=== PATIENT | male | born 1950 | race Caucasian/White ===

== ENCOUNTER 2017-11-10 09:48 | Day surgery (SDC) | payer MEDICARE, OTHER ==
[~2017-11-10 09:48] MED LIST: GLYCOPYRROLATE 0.4 MG INJ
[2017-11-10] MEDS ORDERED: CEFAZOLIN 2 GM/50 ML (PMX) 50 ML IVPB (11:00)
[2017-11-10] MEDS ORDERED: SOD CHLORIDE 0.9% 1,000 ML IV (11:00)
[2017-11-10 11:20] LABS: ABNORMAL IP MESSAGE 1; HEMATOCRIT 28.2 % (42.0-52.0); HEMOGLOBIN 9.6 g/dl (14.0-18.0); MEAN CORPUSCULAR HEMOGLOBIN 29.4 pg (29.0-33.0); MEAN CORPUSCULAR VOLUME 86.2 fl (82.0-101.0); MEAN PLATELET VOLUME 11.1 fl (7.4-10.4); PLATELET COUNT 83 10^3/UL (140-415); POSITIVE DIFF @See below; RED BLOOD COUNT 3.27 10^6/ul (4.70-6.10)
[2017-11-10 11:20] LABS: WHITE BLOOD COUNT 4.8 10^3/ul (4.8-10.8)
[2017-11-10 11:31] LABS: ADD MAN DIFF? YES; HOLD TRANSMISSIONS 1
[2017-11-10 11:48] LABS: ALANINE AMINOTRANSFERASE 22 IU/L (13-69); ALBUMIN 4.3 g/dl (3.3-4.9); ALBUMIN/GLOBULIN RATIO 1.34; ALKALINE PHOSPHATASE 127 IU/L (42-121); ANION GAP 24 (8-16); ASPARTATE AMINO TRANSFERASE < 8 IU/L (15-46); BILIRUBIN,INDIRECT 0.2 mg/dl (0-1.1); BILIRUBIN,TOTAL 0.2 mg/dl (0.2-1.3); CARBON DIOXIDE 25 mmol/L (21-31); CHLORIDE 99 mmol/L (97-110); GLUCOSE 154 mg/dl (70-220); TOTAL PROTEIN 7.5 g/dl (6.1-8.1)
[2017-11-10 11:57] LABS: INR 1.08; PROTIME 14.1 Sec (11.9-14.9); PT RATIO 1.1
[2017-11-10 11:58] LABS: PARTIAL THROMBOPLASTIN TIME 31.8 Sec (25.0-35.0)
[2017-11-10 12:01] LABS: BLOOD UREA NITROGEN 75 mg/dl (7-20); CALCIUM 9.7 mg/dl (8.4-10.2); CREATININE 6.38 mg/dl (0.61-1.24); POTASSIUM 4.8 mmol/L (3.5-5.1); SODIUM 143 mmol/L (135-144)
[2017-11-10] MEDS ORDERED: PROPOFOL 40 ML (13:55)
[2017-11-10] MEDS ORDERED: LIDOCAINE 2% (SDV) 5 ML INJ (13:59)
[2017-11-10] MEDS ORDERED: FENTAnyl 50 MCG/ML VIAL (13:59)
[2017-11-10] MEDS ORDERED: MIDAZOLAM 1 MG/ML 2 ML INJ (14:00)
[2017-11-10] MEDS: LIDOCAINE 1%/EPI 30 ML INJ (14:25)
[2017-11-10] MEDS: hydrALAzine 20 MG INJ IV ×2 (15:07→15:27)
== END 2017-11-10 16:30 | disposition home or self-care (01) ==
LOC: SDS 09:48
DX: D18.01 Hemangioma of skin and subcutaneous tissue (principal); I10 Essential (primary) hypertension; E11.9 Type 2 diabetes mellitus without complications; Z79.4 Long term (current) use of insulin; E78.5 Hyperlipidemia, unspecified
CPT/HCPCS: 25075; 71045; 80053; 82962; 85025; 85610; 85730; 88307; 88342; 93005

== ENCOUNTER 2017-11-24 12:22 | Emergency (ER) | payer MEDICARE, OTHER | END 2017-11-24 12:34 | disposition home or self-care (01) | LOC: E/R 12:34 | DX: Z48.02 Encounter for removal of sutures (principal); Z79.4 Long term (current) use of insulin; Z79.82 Long term (current) use of aspirin | CPT/HCPCS: 99281 ==

== ENCOUNTER 2018-10-01 22:10 | Inpatient (IN) | payer MEDICARE, OTHER ==
[2018-10-01 22:56] LABS: ADD MAN DIFF? NO
[2018-10-01 23:00] LABS: ABNORMAL IP MESSAGE 1; BASOPHILS % 0.2 % (0.0-2.0); EOSINOPHILS # 0.1 10^3/ul (0.0-0.5); EOSINOPHILS % 0.6 % (0.0-7.0); HEMATOCRIT 36.7 % (42.0-52.0); HEMOGLOBIN 11.4 g/dl (14.0-18.0); LYMPHOCYTES # 0.4 10^3/ul (0.8-2.9); LYMPHOCYTES % 3.5 % (15.0-51.0); MEAN CORPUSCULAR HEMOGLOBIN 27.4 pg (29.0-33.0); MEAN CORPUSCULAR HGB CONC 31.1 g/dl (32.0-37.0); MEAN CORPUSCULAR VOLUME 88.2 fl (82.0-101.0); MEAN PLATELET VOLUME 9.3 fl (7.4-10.4); MONOCYTE # 0.6 10^3/ul (0.3-0.9); MONOCYTES % 5.7 % (0.0-11.0); NEUTROPHIL # 10.1 10^3/ul (1.6-7.5); NEUTROPHILS % 89.6 % (39.0-77.0); PLATELET COUNT 268 10^3/UL (140-415); POSITIVE DIFF @See below; RED BLOOD COUNT 4.16 10^6/ul (4.70-6.10); RED CELL DISTRIBUTION WIDTH 13.4 % (11.5-14.5)
[2018-10-01 23:00] LABS: WHITE BLOOD COUNT 11.3 10^3/ul (4.8-10.8)
[2018-10-01 23:15] LABS: ALANINE AMINOTRANSFERASE 23 IU/L (13-69); ALBUMIN 4.2 g/dl (3.3-4.9); ALBUMIN/GLOBULIN RATIO 1.05; ALKALINE PHOSPHATASE 250 IU/L (42-121); ANION GAP 20 (5-13); ASPARTATE AMINO TRANSFERASE 13 IU/L (15-46); BILIRUBIN,INDIRECT 0.3 mg/dl (0-1.1); BILIRUBIN,TOTAL 0.3 mg/dl (0.2-1.3); BLOOD UREA NITROGEN 88 mg/dl (7-20); CALCIUM 10.1 mg/dl (8.4-10.2); CARBON DIOXIDE 24 mmol/L (21-31); CHLORIDE 94 mmol/L (97-110); CREATININE 9.81 mg/dl (0.61-1.24); Estimated GFR 5 mL/min (>60); GLUCOSE 147 mg/dl (70-220); POTASSIUM 5.2 mmol/L (3.5-5.1); SODIUM 138 mmol/L (135-144); TOTAL PROTEIN 8.2 g/dl (6.1-8.1)
[2018-10-01 23:19] LABS: INR 1.15; PROTIME 14.8 Sec (11.9-14.9); PT RATIO 1.2
[2018-10-01 23:20] LABS: PARTIAL THROMBOPLASTIN TIME 32.6 Sec (23.0-35.0)
[2018-10-01 23:27] LABS: TROPONIN-I 0.097 ng/ml (0.000-0.120)
[2018-10-02] MEDS: CEFEPIME 1GM/50 ML (PMX) 50 ML IVPB ×2 (00:30→09:08)
[2018-10-02] MEDS: VANCOMYCIN 1 GM (PMX) 250 ML IVPB (01:02)
[2018-10-02 03:31] LABS: LACTIC ACID 0.7 mmol/L (0.5-2.0)
[2018-10-02] MEDS ORDERED: VANCOMYCIN IV PER PHARMACY XX (04:00)
[2018-10-02] MEDS ORDERED: hydrOXYzine HCL 50 MG TAB PO (04:00)
[2018-10-02] MEDS: ONDANSETRON 4 MG INJ IV (04:44)
[2018-10-02] MEDS: ACETAMINOPHEN 325 MG TAB PO (04:44)
[2018-10-02] MEDS ORDERED: GLUCOSE GEL 15 GRAM TUBE BUCCAL (05:00)
[2018-10-02] MEDS ORDERED: GLUCOSE GEL 15 GRAM TUBE PO ×2 (05:00)
[2018-10-02] MEDS ORDERED: DEXTROSE 50% 50 ML SYRINGE IV (05:00)
[2018-10-02] MEDS ORDERED: GLUCAGON 1 MG INJ IM (05:00)
[2018-10-02 05:42] LABS: ADD MAN DIFF? NO
[2018-10-02 05:44] LABS: ABNORMAL IP MESSAGE 1; BASOPHILS % 0.2 % (0.0-2.0); EOSINOPHILS % 0.3 % (0.0-7.0); HEMATOCRIT 30.9 % (42.0-52.0); HEMOGLOBIN 9.9 g/dl (14.0-18.0); LYMPHOCYTES # 0.4 10^3/ul (0.8-2.9); LYMPHOCYTES % 3.3 % (15.0-51.0); MEAN CORPUSCULAR VOLUME 87.5 fl (82.0-101.0); MEAN PLATELET VOLUME 9.3 fl (7.4-10.4); MONOCYTE # 0.7 10^3/ul (0.3-0.9); MONOCYTES % 6.2 % (0.0-11.0); NEUTROPHILS % 89.5 % (39.0-77.0); PLATELET COUNT 200 10^3/UL (140-415); POSITIVE DIFF @See below; RED BLOOD COUNT 3.53 10^6/ul (4.70-6.10); RED CELL DISTRIBUTION WIDTH 13.6 % (11.5-14.5)
[2018-10-02 05:44] LABS: WHITE BLOOD COUNT 11.2 10^3/ul (4.8-10.8)
[2018-10-02 06:00] LABS: HEMOGLOBIN A1C 5.2 % (0-5.9)
[2018-10-02] MEDS: VANCOMYCIN 1 GM 250 ML IVPB (06:03)
[2018-10-02 06:16] LABS: CHOLESTEROL 97 mg/dl (100-200)
[2018-10-02 06:16] LABS: CHOL/HDL RATIO 3.4 RATIO; HDL CHOLESTEROL 28 mg/dl (30-78); LDL CHOLESTEROL,CALCULATED 51 mg/dl; TRIGLYCERIDES 92 mg/dl (0-149)
[2018-10-02 06:50] LABS: ANION GAP 16 (5-13); BLOOD UREA NITROGEN 91 mg/dl (7-20); CALCIUM 9.6 mg/dl (8.4-10.2); CARBON DIOXIDE 25 mmol/L (21-31); CHLORIDE 97 mmol/L (97-110); CREATININE 9.81 mg/dl (0.61-1.24); Estimated GFR 5 mL/min (>60); GLUCOSE 95 mg/dl (70-220); POTASSIUM 5.2 mmol/L (3.5-5.1); SODIUM 138 mmol/L (135-144)
[2018-10-02] MEDS ORDERED: hydrOXYzine HCL 25 MG TAB PO (07:00)
[2018-10-02] MEDS: ACCU-CHEK XX ×4 (07:00→21:24)
[2018-10-02] MEDS: INSULIN ASPART [NOVOLOG] 3 ML PEN SC ×4 (07:57→20:09)
[2018-10-02] MEDS ORDERED: AMLODIPINE 2.5 MG TAB PO (09:00)
[2018-10-02] MEDS: ASPIRIN 81 MG TAB PO (09:07)
[2018-10-02] MEDS: AMLODIPINE 10 MG TAB PO (09:08)
[2018-10-02] MEDS: PIOGLITAZONE 15 MG TAB PO (09:08)
[2018-10-02] MEDS: FUROSEMIDE 20 MG TAB PO (09:08)
[2018-10-02] MEDS: LISINOPRIL 5 MG TAB PO (09:09)
[2018-10-02 15:51] LABS: HEPATITIS B SURFACE ANTIGEN NEGATIVE (NEGATIVE)
[2018-10-02 16:08] LABS: HEPATITIS B SURFACE ANTIBODY POSITIVE (NEGATIVE)
[2018-10-02] MEDS: IOHEXOL 14.3 MG(I)/ML (ADULT) BTL PO (17:30)
[2018-10-02] MEDS: METOCLOPRAMIDE 10 MG INJ IV ×2 (17:30→20:09)
[2018-10-02] MEDS: INSULIN GLARGINE [LANTus] (100 UNITS/ML) SYG SC (21:24)
[2018-10-03 06:05] LABS: ADD MAN DIFF? NO
[2018-10-03] MEDS: PANTOPRAZOLE (EC) 40 MG TAB PO (06:14)
[2018-10-03] MEDS: METOCLOPRAMIDE 10 MG INJ IV ×4 (06:15→20:06)
[2018-10-03 06:25] LABS: ABNORMAL IP MESSAGE 1; BASOPHILS % 0.3 % (0.0-2.0); EOSINOPHILS # 0.2 10^3/ul (0.0-0.5); HEMATOCRIT 32.7 % (42.0-52.0); HEMOGLOBIN 10.4 g/dl (14.0-18.0); LYMPHOCYTES # 0.5 10^3/ul (0.8-2.9); LYMPHOCYTES % 6.2 % (15.0-51.0); MEAN CORPUSCULAR HEMOGLOBIN 27.8 pg (29.0-33.0); MEAN CORPUSCULAR HGB CONC 31.8 g/dl (32.0-37.0); MEAN CORPUSCULAR VOLUME 87.4 fl (82.0-101.0); MEAN PLATELET VOLUME 9.8 fl (7.4-10.4); MONOCYTE # 0.6 10^3/ul (0.3-0.9); NEUTROPHILS % 82.2 % (39.0-77.0); PLATELET COUNT 207 10^3/UL (140-415); POSITIVE DIFF @See below; RED BLOOD COUNT 3.74 10^6/ul (4.70-6.10); RED CELL DISTRIBUTION WIDTH 13.8 % (11.5-14.5)
[2018-10-03 06:25] LABS: WHITE BLOOD COUNT 7.3 10^3/ul (4.8-10.8)
[2018-10-03 06:34] LABS: ANION GAP 14 (5-13); BLOOD UREA NITROGEN 59 mg/dl (7-20); CALCIUM 9.6 mg/dl (8.4-10.2); CARBON DIOXIDE 27 mmol/L (21-31); CHLORIDE 98 mmol/L (97-110); CHOLESTEROL 102 mg/dl (100-200); CREATININE 6.99 mg/dl (0.61-1.24); Estimated GFR 8 mL/min (>60); GLUCOSE 90 mg/dl (70-220); HDL CHOLESTEROL 25 mg/dl (30-78); LDL CHOLESTEROL,CALCULATED 58 mg/dl; POTASSIUM 4.8 mmol/L (3.5-5.1); SODIUM 139 mmol/L (135-144); TRIGLYCERIDES 93 mg/dl (0-149)
[2018-10-03] MEDS: ACCU-CHEK XX ×4 (07:00→20:06)
[2018-10-03 07:18] LABS: HEMOGLOBIN A1C 5.1 % (0-5.9)
[2018-10-03] MEDS: INSULIN ASPART [NOVOLOG] 3 ML PEN SC ×4 (08:00→20:11)
[2018-10-03] MEDS: CEFEPIME 1GM/50 ML (PMX) 50 ML IVPB ×2 (08:49→09:38)
[2018-10-03] MEDS: FUROSEMIDE 20 MG TAB PO ×2 (08:49→09:39)
[2018-10-03] MEDS: ASPIRIN 81 MG TAB PO ×2 (08:49→09:39)
[2018-10-03] MEDS: PIOGLITAZONE 15 MG TAB PO ×2 (08:49→09:38)
[2018-10-03] MEDS: AMLODIPINE 10 MG TAB PO ×2 (08:54→09:40)
[2018-10-03] MEDS: LISINOPRIL 5 MG TAB PO ×2 (08:54→09:40)
[2018-10-03] MEDS: PROPOFOL 20 ML (08:59)
[2018-10-03 16:43] LABS: CARCINOEMBRYONIC ANTIGEN 5.4 ng/ml (0.0-5.0)
[2018-10-03 17:09] LABS: INR 1.25; PROTIME 15.8 Sec (11.9-14.9); PT RATIO 1.2
[2018-10-03 17:10] LABS: PARTIAL THROMBOPLASTIN TIME 33.7 Sec (23.0-35.0)
[2018-10-03] MEDS: LIDOCAINE 1% (MDV) 20 ML INJ (17:10)
[2018-10-03 17:58] LABS: FLUID TYPE ASCITES FLUID
[2018-10-03 17:59] LABS: FLUID GLUCOSE 118 mg/dl; FLUID TOTAL PROTEIN 3.9 g/dl
[2018-10-03 18:04] LABS: FLD PMN% 72.8 %; FLD RBC 4000 /uL; FLD WBC 3413 /cmm
[2018-10-03 19:24] LABS: CANCER ANTIGEN 19-9 27.1 U/ml (0.0-37.0)
[2018-10-03 19:25] LABS: ALPHA FETOPROTEIN < 0.83 IU/L (0.00-7.21)
[2018-10-03 19:43] LABS: FLD TYPE ASCITES
[2018-10-03 19:43] LABS: FLD CLARITY SLIGHTLY CLOUDY; FLD COLOR YELLOW
[2018-10-03 19:47] LABS: FLD MN% 27.2 %
[2018-10-03] MEDS: INSULIN GLARGINE [LANTus] (100 UNITS/ML) SYG SC (20:11)
[2018-10-04 05:39] LABS: VANCOMYCIN,RANDOM 12.5 ug/ml
[2018-10-04] MEDS: METOCLOPRAMIDE 10 MG INJ IV ×4 (06:15→20:58)
[2018-10-04] MEDS: PANTOPRAZOLE (EC) 40 MG TAB PO (06:15)
[2018-10-04] MEDS: ACCU-CHEK XX ×4 (06:15→20:58)
[2018-10-04] MEDS: INSULIN ASPART [NOVOLOG] 3 ML PEN SC ×4 (07:46→20:58)
[2018-10-04] MEDS: PIOGLITAZONE 15 MG TAB PO (08:12)
[2018-10-04] MEDS: CEFEPIME 1GM/50 ML (PMX) 50 ML IVPB (08:12)
[2018-10-04] MEDS: FUROSEMIDE 20 MG TAB PO (08:13)
[2018-10-04] MEDS: ASPIRIN 81 MG TAB PO (08:13)
[2018-10-04] MEDS: AMLODIPINE 10 MG TAB PO (08:13)
[2018-10-04] MEDS: VANCOMYCIN 1 GM 250 ML IVPB (14:51)
[2018-10-04] MEDS ORDERED: PIPER-TAZO 3.375 GM IV (PMX) 100 ML IVPB (18:00)
[2018-10-04] MEDS: PIPER-TAZO 2.25 GM/NS 50 ML IVPB (18:50)
[2018-10-04] MEDS: INSULIN GLARGINE [LANTus] (100 UNITS/ML) SYG SC (21:24)
[2018-10-05] MEDS: PIPER-TAZO 2.25 GM/NS 50 ML IVPB ×3 (04:52→21:26)
[2018-10-05] MEDS: PANTOPRAZOLE (EC) 40 MG TAB PO (04:52)
[2018-10-05] MEDS: METOCLOPRAMIDE 10 MG INJ IV ×4 (04:53→20:26)
[2018-10-05] MEDS: ACCU-CHEK XX ×4 (07:30→21:00)
[2018-10-05] MEDS: INSULIN ASPART [NOVOLOG] 3 ML PEN SC ×4 (08:00→21:31)
[2018-10-05] MEDS: PIOGLITAZONE 15 MG TAB PO (08:45)
[2018-10-05] MEDS: FUROSEMIDE 20 MG TAB PO (08:46)
[2018-10-05] MEDS: ASPIRIN 81 MG TAB PO (08:46)
[2018-10-05] MEDS: LISINOPRIL 5 MG TAB PO (08:47)
[2018-10-05] MEDS: AMLODIPINE 10 MG TAB PO (08:47)
[2018-10-05] MEDS: INSULIN GLARGINE [LANTus] (100 UNITS/ML) SYG SC (21:35)
[2018-10-06 05:55] LABS: ADD MAN DIFF? NO
[2018-10-06 06:02] LABS: BASOPHILS % 0.3 % (0.0-2.0); EOSINOPHILS # 0.2 10^3/ul (0.0-0.5); EOSINOPHILS % 3.6 % (0.0-7.0); HEMATOCRIT 31.2 % (42.0-52.0); HEMOGLOBIN 9.9 g/dl (14.0-18.0); LYMPHOCYTES # 0.6 10^3/ul (0.8-2.9); LYMPHOCYTES % 10.3 % (15.0-51.0); MEAN CORPUSCULAR HEMOGLOBIN 27.4 pg (29.0-33.0); MEAN CORPUSCULAR HGB CONC 31.7 g/dl (32.0-37.0); MEAN CORPUSCULAR VOLUME 86.4 fl (82.0-101.0); MONOCYTE # 0.5 10^3/ul (0.3-0.9); MONOCYTES % 9.1 % (0.0-11.0); NEUTROPHIL # 4.4 10^3/ul (1.6-7.5); PLATELET COUNT 189 10^3/UL (140-415); RED BLOOD COUNT 3.61 10^6/ul (4.70-6.10); RED CELL DISTRIBUTION WIDTH 13.8 % (11.5-14.5)
[2018-10-06 06:02] LABS: WHITE BLOOD COUNT 5.8 10^3/ul (4.8-10.8)
[2018-10-06] MEDS: METOCLOPRAMIDE 10 MG INJ IV ×4 (06:08→19:36)
[2018-10-06] MEDS: PANTOPRAZOLE (EC) 40 MG TAB PO (06:09)
[2018-10-06] MEDS: PIPER-TAZO 2.25 GM/NS 50 ML IVPB ×3 (06:10→19:36)
[2018-10-06 06:30] LABS: ANION GAP 15 (5-13); BLOOD UREA NITROGEN 53 mg/dl (7-20); CARBON DIOXIDE 25 mmol/L (21-31); CHLORIDE 94 mmol/L (97-110); CREATININE 6.53 mg/dl (0.61-1.24); Estimated GFR 9 mL/min (>60); GLUCOSE 122 mg/dl (70-220); POTASSIUM 5.9 mmol/L (3.5-5.1); SODIUM 134 mmol/L (135-144)
[2018-10-06] MEDS: ACCU-CHEK XX ×4 (07:00→19:35)
[2018-10-06] MEDS: INSULIN ASPART [NOVOLOG] 3 ML PEN SC ×4 (08:00→20:37)
[2018-10-06] MEDS: PIOGLITAZONE 15 MG TAB PO (09:16)
[2018-10-06] MEDS: ASPIRIN 81 MG TAB PO (09:16)
[2018-10-06] MEDS: FUROSEMIDE 20 MG TAB PO (09:17)
[2018-10-06] MEDS: LISINOPRIL 5 MG TAB PO (09:17)
[2018-10-06] MEDS: AMLODIPINE 10 MG TAB PO (09:17)
[2018-10-06] MEDS: INSULIN GLARGINE [LANTus] (100 UNITS/ML) SYG SC (20:37)
[2018-10-07] MEDS: PIPER-TAZO 2.25 GM/NS 50 ML IVPB ×3 (06:39→20:18)
[2018-10-07] MEDS: PANTOPRAZOLE (EC) 40 MG TAB PO (06:49)
[2018-10-07] MEDS: METOCLOPRAMIDE 10 MG INJ IV ×4 (06:49→20:17)
[2018-10-07 06:53] LABS: VANCOMYCIN,RANDOM 12.2 ug/ml
[2018-10-07] MEDS: ACCU-CHEK XX ×4 (07:56→20:17)
[2018-10-07] MEDS: INSULIN ASPART [NOVOLOG] 3 ML PEN SC ×4 (08:00→20:17)
[2018-10-07] MEDS: AMLODIPINE 10 MG TAB PO (08:21)
[2018-10-07] MEDS: PIOGLITAZONE 15 MG TAB PO (08:21)
[2018-10-07] MEDS: FUROSEMIDE 20 MG TAB PO (08:22)
[2018-10-07] MEDS: LISINOPRIL 5 MG TAB PO (08:22)
[2018-10-07] MEDS: ASPIRIN 81 MG TAB PO (08:22)
[2018-10-07] MEDS: VANCOMYCIN 1 GM 250 ML IVPB (10:06)
[2018-10-07] MEDS: INSULIN GLARGINE [LANTus] (100 UNITS/ML) SYG SC (20:48)
[2018-10-08 06:21] LABS: ADD MAN DIFF? NO
[2018-10-08] MEDS: PANTOPRAZOLE (EC) 40 MG TAB PO (06:24)
[2018-10-08] MEDS: METOCLOPRAMIDE 10 MG INJ IV ×4 (06:27→20:48)
[2018-10-08] MEDS: PIPER-TAZO 2.25 GM/NS 50 ML IVPB ×3 (06:27→20:48)
[2018-10-08 06:49] LABS: BASOPHILS % 0.6 % (0.0-2.0); EOSINOPHILS # 0.2 10^3/ul (0.0-0.5); EOSINOPHILS % 3.6 % (0.0-7.0); HEMATOCRIT 31.8 % (42.0-52.0); HEMOGLOBIN 9.9 g/dl (14.0-18.0); LYMPHOCYTES # 0.7 10^3/ul (0.8-2.9); LYMPHOCYTES % 10.1 % (15.0-51.0); MEAN CORPUSCULAR HEMOGLOBIN 26.8 pg (29.0-33.0); MEAN CORPUSCULAR HGB CONC 31.1 g/dl (32.0-37.0); MEAN CORPUSCULAR VOLUME 85.9 fl (82.0-101.0); MEAN PLATELET VOLUME 9.8 fl (7.4-10.4); MONOCYTE # 0.6 10^3/ul (0.3-0.9); MONOCYTES % 8.5 % (0.0-11.0); NEUTROPHILS % 76.3 % (39.0-77.0); PLATELET COUNT 203 10^3/UL (140-415)
[2018-10-08 06:49] LABS: WHITE BLOOD COUNT 6.6 10^3/ul (4.8-10.8)
[2018-10-08] MEDS: ACCU-CHEK XX ×4 (07:00→20:47)
[2018-10-08] MEDS: INSULIN ASPART [NOVOLOG] 3 ML PEN SC ×4 (07:39→20:50)
[2018-10-08] MEDS: ASPIRIN 81 MG TAB PO (08:16)
[2018-10-08] MEDS: PIOGLITAZONE 15 MG TAB PO (08:16)
[2018-10-08] MEDS: AMLODIPINE 10 MG TAB PO (08:16)
[2018-10-08] MEDS: LISINOPRIL 5 MG TAB PO (08:16)
[2018-10-08] MEDS: FUROSEMIDE 20 MG TAB PO (08:17)
[2018-10-08] MEDS: INSULIN GLARGINE [LANTus] (100 UNITS/ML) SYG SC (20:51)
[2018-10-09 05:07] LABS: ADD MAN DIFF? NO
[2018-10-09 05:23] LABS: BASOPHILS % 0.1 % (0.0-2.0); EOSINOPHILS # 0.2 10^3/ul (0.0-0.5); HEMATOCRIT 31.8 % (42.0-52.0); HEMOGLOBIN 9.8 g/dl (14.0-18.0); LYMPHOCYTES # 0.6 10^3/ul (0.8-2.9); LYMPHOCYTES % 8.8 % (15.0-51.0); MEAN CORPUSCULAR HEMOGLOBIN 26.9 pg (29.0-33.0); MEAN CORPUSCULAR HGB CONC 30.8 g/dl (32.0-37.0); MEAN CORPUSCULAR VOLUME 87.4 fl (82.0-101.0); MEAN PLATELET VOLUME 9.7 fl (7.4-10.4); MONOCYTE # 0.6 10^3/ul (0.3-0.9); MONOCYTES % 8.8 % (0.0-11.0); NEUTROPHIL # 5.4 10^3/ul (1.6-7.5); NEUTROPHILS % 78.3 % (39.0-77.0); PLATELET COUNT 206 10^3/UL (140-415); RED BLOOD COUNT 3.64 10^6/ul (4.70-6.10); RED CELL DISTRIBUTION WIDTH 14.1 % (11.5-14.5)
[2018-10-09 05:23] LABS: WHITE BLOOD COUNT 6.9 10^3/ul (4.8-10.8)
[2018-10-09] MEDS: PANTOPRAZOLE (EC) 40 MG TAB PO (06:08)
[2018-10-09] MEDS: METOCLOPRAMIDE 10 MG INJ IV ×3 (06:09→17:27)
[2018-10-09] MEDS: PIPER-TAZO 2.25 GM/NS 50 ML IVPB (06:09)
[2018-10-09 06:18] LABS: ANION GAP 15 (5-13); BLOOD UREA NITROGEN 49 mg/dl (7-20); CARBON DIOXIDE 22 mmol/L (21-31); CHLORIDE 96 mmol/L (97-110); CREATININE 6.79 mg/dl (0.61-1.24); Estimated GFR 8 mL/min (>60); GLUCOSE 85 mg/dl (70-220); SODIUM 133 mmol/L (135-144)
[2018-10-09 06:24] LABS: POTASSIUM 6.6 mmol/L (3.5-5.1)
[2018-10-09] MEDS: ACCU-CHEK XX ×4 (07:00→21:00)
[2018-10-09] MEDS ORDERED: SODIUM POLYSTYRENE 15 GM KIT (POWDER + SORBITOL) PO (07:00)
[2018-10-09] MEDS: INSULIN ASPART [NOVOLOG] 3 ML PEN SC ×4 (07:57→19:57)
[2018-10-09] MEDS ORDERED: NA POLYST SULFON 15 GM/60 ML BTL PO (08:00)
[2018-10-09] MEDS: NA POLYST SULFON 15 GM/60 ML BTL PO (08:00)
[2018-10-09] MEDS: PIOGLITAZONE 15 MG TAB PO (08:06)
[2018-10-09] MEDS: FUROSEMIDE 20 MG TAB PO (08:47)
[2018-10-09] MEDS: AMLODIPINE 10 MG TAB PO (08:47)
[2018-10-09] MEDS: ASPIRIN 81 MG TAB PO (08:47)
[2018-10-09] MEDS: LISINOPRIL 5 MG TAB PO (08:47)
[2018-10-09] MEDS: AMOXICILLIN/CLAV 250 MG TAB PO (15:03)
[2018-10-09] MEDS: INSULIN GLARGINE [LANTus] (100 UNITS/ML) SYG SC (19:57)
[2018-10-10] MEDS: METOCLOPRAMIDE 10 MG INJ IV ×5 (00:42→21:20)
[2018-10-10] MEDS: AMOXICILLIN/CLAV 250 MG TAB PO ×4 (00:42→21:16)
[2018-10-10 05:40] LABS: PLATELET COUNT 185 10^3/UL (140-415)
[2018-10-10] MEDS: PANTOPRAZOLE (EC) 40 MG TAB PO (05:52)
[2018-10-10] MEDS: LEVOFLOXACIN 250 MG TAB PO (05:52)
[2018-10-10 05:59] LABS: INR 1.23; PROTIME 15.6 Sec (11.9-14.9); PT RATIO 1.2
[2018-10-10 06:00] LABS: PARTIAL THROMBOPLASTIN TIME 36.5 Sec (23.0-35.0); THROMBIN TIME 15.6 SEC (13.8-19.1)
[2018-10-10 06:32] LABS: ANION GAP 9 (5-13); BLOOD UREA NITROGEN 28 mg/dl (7-20); CALCIUM 8.6 mg/dl (8.4-10.2); CARBON DIOXIDE 30 mmol/L (21-31); CHLORIDE 97 mmol/L (97-110); Estimated GFR 12 mL/min (>60); GLUCOSE 83 mg/dl (70-220); POTASSIUM 4.5 mmol/L (3.5-5.1); SODIUM 136 mmol/L (135-144)
[2018-10-10] MEDS: ACCU-CHEK XX ×4 (07:00→21:16)
[2018-10-10] MEDS: INSULIN ASPART [NOVOLOG] 3 ML PEN SC ×4 (08:00→21:00)
[2018-10-10] MEDS: DEXTROSE 50% 50 ML SYRINGE IV (08:21)
[2018-10-10] MEDS: LIDOCAINE 1% (MDV) 20 ML INJ (09:12)
[2018-10-10] MEDS: FENTAnyl 50 MCG/ML VIAL ×2 (09:49)
[2018-10-10] MEDS: MIDAZOLAM 1 MG/ML 2 ML INJ (09:49)
[2018-10-10] MEDS: NALOXONE (0.4 MG/ML) INJ (09:50)
[2018-10-10] MEDS: AMLODIPINE 10 MG TAB PO (12:11)
[2018-10-10] MEDS: ASPIRIN 81 MG TAB PO (12:11)
[2018-10-10] MEDS: LISINOPRIL 5 MG TAB PO (12:11)
[2018-10-10] MEDS: FUROSEMIDE 20 MG TAB PO (12:12)
[2018-10-10] MEDS: PIOGLITAZONE 15 MG TAB PO (12:17)
[2018-10-10] MEDS: INSULIN GLARGINE [LANTus] (100 UNITS/ML) SYG SC (21:26)
[2018-10-11] MEDS: LEVOFLOXACIN 250 MG TAB PO (06:06)
[2018-10-11] MEDS: PANTOPRAZOLE (EC) 40 MG TAB PO (06:06)
[2018-10-11] MEDS: METOCLOPRAMIDE 10 MG INJ IV ×4 (06:07→21:10)
[2018-10-11] MEDS: AMOXICILLIN/CLAV 250 MG TAB PO ×3 (06:07→21:09)
[2018-10-11] MEDS: ACCU-CHEK XX ×4 (07:00→21:22)
[2018-10-11 07:15] LABS: ANION GAP 12 (5-13); BLOOD UREA NITROGEN 37 mg/dl (7-20); CALCIUM 8.9 mg/dl (8.4-10.2); CARBON DIOXIDE 27 mmol/L (21-31); CHLORIDE 93 mmol/L (97-110); CREATININE 6.13 mg/dl (0.61-1.24); Estimated GFR 9 mL/min (>60); GLUCOSE 92 mg/dl (70-220); POTASSIUM 5.3 mmol/L (3.5-5.1); SODIUM 132 mmol/L (135-144)
[2018-10-11] MEDS: INSULIN ASPART [NOVOLOG] 3 ML PEN SC ×4 (08:00→21:18)
[2018-10-11] MEDS: PIOGLITAZONE 15 MG TAB PO (08:51)
[2018-10-11] MEDS: LISINOPRIL 5 MG TAB PO (08:51)
[2018-10-11] MEDS: AMLODIPINE 10 MG TAB PO (08:51)
[2018-10-11] MEDS: ASPIRIN 81 MG TAB PO (08:51)
[2018-10-11] MEDS: FUROSEMIDE 20 MG TAB PO (08:51)
[2018-10-11] MEDS: INSULIN GLARGINE [LANTus] (100 UNITS/ML) SYG SC (21:12)
[2018-10-12] MEDS: LEVOFLOXACIN 250 MG TAB PO (05:50)
[2018-10-12] MEDS: AMOXICILLIN/CLAV 250 MG TAB PO ×2 (05:50→13:42)
[2018-10-12] MEDS: PANTOPRAZOLE (EC) 40 MG TAB PO (05:50)
[2018-10-12 05:51] LABS: ADD MAN DIFF? NO
[2018-10-12 05:53] LABS: ABNORMAL IP MESSAGE 1; BASOPHILS % 0.3 % (0.0-2.0); EOSINOPHILS # 0.1 10^3/ul (0.0-0.5); EOSINOPHILS % 1.7 % (0.0-7.0); HEMATOCRIT 29.4 % (42.0-52.0); HEMOGLOBIN 9.2 g/dl (14.0-18.0); LYMPHOCYTES # 0.6 10^3/ul (0.8-2.9); LYMPHOCYTES % 9.5 % (15.0-51.0); MEAN CORPUSCULAR HEMOGLOBIN 26.9 pg (29.0-33.0); MEAN CORPUSCULAR HGB CONC 31.3 g/dl (32.0-37.0); MEAN PLATELET VOLUME 9.4 fl (7.4-10.4); MONOCYTE # 0.6 10^3/ul (0.3-0.9); MONOCYTES % 9.8 % (0.0-11.0); NEUTROPHIL # 4.6 10^3/ul (1.6-7.5); NEUTROPHILS % 78.2 % (39.0-77.0); PLATELET COUNT 175 10^3/UL (140-415); POSITIVE DIFF @See below; RED BLOOD COUNT 3.42 10^6/ul (4.70-6.10); RED CELL DISTRIBUTION WIDTH 14.4 % (11.5-14.5)
[2018-10-12 05:53] LABS: WHITE BLOOD COUNT 5.9 10^3/ul (4.8-10.8)
[2018-10-12 06:26] LABS: ANION GAP 11 (5-13); BLOOD UREA NITROGEN 26 mg/dl (7-20); CALCIUM 8.7 mg/dl (8.4-10.2); CARBON DIOXIDE 29 mmol/L (21-31); CHLORIDE 97 mmol/L (97-110); Estimated GFR 12 mL/min (>60); GLUCOSE 105 mg/dl (70-220); POTASSIUM 4.5 mmol/L (3.5-5.1); SODIUM 137 mmol/L (135-144)
[2018-10-12] MEDS: ACCU-CHEK XX ×4 (07:00→22:50)
[2018-10-12] MEDS: METOCLOPRAMIDE 10 MG INJ IV ×4 (07:00→22:57)
[2018-10-12] MEDS: INSULIN ASPART [NOVOLOG] 3 ML PEN SC ×4 (08:00→22:50)
[2018-10-12] MEDS: PIOGLITAZONE 15 MG TAB PO (08:03)
[2018-10-12] MEDS: LISINOPRIL 5 MG TAB PO (08:03)
[2018-10-12] MEDS: FUROSEMIDE 20 MG TAB PO (08:03)
[2018-10-12] MEDS: AMLODIPINE 10 MG TAB PO (08:03)
[2018-10-12] MEDS: ASPIRIN 81 MG TAB PO (08:03)
[2018-10-12] MEDS: INSULIN GLARGINE [LANTus] (100 UNITS/ML) SYG SC (23:08)
[2018-10-13] MEDS: LEVOFLOXACIN 250 MG TAB PO (05:36)
[2018-10-13] MEDS: PANTOPRAZOLE (EC) 40 MG TAB PO (05:36)
[2018-10-13] MEDS: METOCLOPRAMIDE 10 MG INJ IV ×4 (07:00→20:09)
[2018-10-13] MEDS: ACCU-CHEK XX ×4 (07:00→21:08)
[2018-10-13 07:03] LABS: ANION GAP 14 (5-13); BLOOD UREA NITROGEN 36 mg/dl (7-20); CALCIUM 8.7 mg/dl (8.4-10.2); CARBON DIOXIDE 25 mmol/L (21-31); CHLORIDE 96 mmol/L (97-110); CREATININE 6.62 mg/dl (0.61-1.24); Estimated GFR 8 mL/min (>60); GLUCOSE 122 mg/dl (70-220); POTASSIUM 4.7 mmol/L (3.5-5.1); SODIUM 135 mmol/L (135-144)
[2018-10-13] MEDS: INSULIN ASPART [NOVOLOG] 3 ML PEN SC ×4 (08:00→20:08)
[2018-10-13] MEDS: PIOGLITAZONE 15 MG TAB PO (08:35)
[2018-10-13] MEDS: ASPIRIN 81 MG TAB PO (08:35)
[2018-10-13] MEDS: FUROSEMIDE 20 MG TAB PO (12:02)
[2018-10-13] MEDS: LISINOPRIL 5 MG TAB PO (12:03)
[2018-10-13] MEDS: AMLODIPINE 10 MG TAB PO (12:03)
[2018-10-13] MEDS: INSULIN GLARGINE [LANTus] (100 UNITS/ML) SYG SC (20:27)
[2018-10-14] MEDS: METOCLOPRAMIDE 10 MG INJ IV ×4 (06:52→20:19)
[2018-10-14] MEDS: LEVOFLOXACIN 250 MG TAB PO (06:52)
[2018-10-14] MEDS: PANTOPRAZOLE (EC) 40 MG TAB PO (06:52)
[2018-10-14 07:04] LABS: ANION GAP 10 (5-13); BLOOD UREA NITROGEN 29 mg/dl (7-20); CALCIUM 8.8 mg/dl (8.4-10.2); CARBON DIOXIDE 30 mmol/L (21-31); CHLORIDE 97 mmol/L (97-110); CREATININE 5.49 mg/dl (0.61-1.24); Estimated GFR 10 mL/min (>60); GLUCOSE 104 mg/dl (70-220); POTASSIUM 4.3 mmol/L (3.5-5.1); SODIUM 137 mmol/L (135-144)
[2018-10-14] MEDS: ACCU-CHEK XX ×4 (07:34→20:20)
[2018-10-14] MEDS: INSULIN ASPART [NOVOLOG] 3 ML PEN SC ×4 (08:00→20:19)
[2018-10-14] MEDS: AMLODIPINE 10 MG TAB PO (08:12)
[2018-10-14] MEDS: PIOGLITAZONE 15 MG TAB PO (08:12)
[2018-10-14] MEDS: FUROSEMIDE 20 MG TAB PO (08:12)
[2018-10-14] MEDS: LISINOPRIL 5 MG TAB PO (08:13)
[2018-10-14] MEDS: ASPIRIN 81 MG TAB PO (08:13)
[2018-10-14] MEDS: INSULIN GLARGINE [LANTus] (100 UNITS/ML) SYG SC (20:30)
[2018-10-15] MEDS: LEVOFLOXACIN 250 MG TAB PO (06:14)
[2018-10-15] MEDS: PANTOPRAZOLE (EC) 40 MG TAB PO (06:14)
[2018-10-15] MEDS: ACCU-CHEK XX ×2 (07:00→11:30)
[2018-10-15] MEDS: INSULIN ASPART [NOVOLOG] 3 ML PEN SC ×2 (07:35→11:53)
[2018-10-15] MEDS: METOCLOPRAMIDE 10 MG INJ IV ×2 (07:43→11:30)
[2018-10-15] MEDS: AMLODIPINE 10 MG TAB PO (08:09)
[2018-10-15] MEDS: PIOGLITAZONE 15 MG TAB PO (08:09)
[2018-10-15] MEDS: ASPIRIN 81 MG TAB PO (08:09)
[2018-10-15] MEDS: FUROSEMIDE 20 MG TAB PO (08:09)
[2018-10-15] MEDS: LISINOPRIL 5 MG TAB PO (08:10)
== END 2018-10-15 16:50 | disposition home or self-care (01) | DRG 371 ==
LOC: 6WM 10-06 18:37 → E/R 22:10 → 6WM 10-02 00:40
PROC: 0DB38ZX Excision of Lower Esophagus, Via Natural or Artificial Opening Endoscopic, Diagnostic (ICD-10-PCS; 2018-10-03 07:30)
PROC: 0DB68ZX Excision of Stomach, Via Natural or Artificial Opening Endoscopic, Diagnostic (ICD-10-PCS; 2018-10-03 07:30)
PROC: 0W9G3ZZ Drainage of Peritoneal Cavity, Percutaneous Approach (ICD-10-PCS; principal; 2018-10-03 08:00)
PROC: 0DBU3ZX Excision of Omentum, Percutaneous Approach, Diagnostic (ICD-10-PCS; 2018-10-03 08:00)
PROC: 5A1D70Z Performance of Urinary Filtration, Intermittent, Less than 6 Hours Per Day (ICD-10-PCS; 2018-10-03 08:00)
DX: K65.2 Spontaneous bacterial peritonitis (principal); J18.9 Pneumonia, unspecified organism; N18.6 End stage renal disease; I13.2 Hypertensive heart and chronic kidney disease with heart failure and with stage 5 chronic kidney disease, or end stage renal disease; R18.8 Other ascites; D63.1 Anemia in chronic kidney disease; K29.30 Chronic superficial gastritis without bleeding; E11.22 Type 2 diabetes mellitus with diabetic chronic kidney disease; E87.5 Hyperkalemia; E11.21 Type 2 diabetes mellitus with diabetic nephropathy; E83.39 Other disorders of phosphorus metabolism; I50.9 Heart failure, unspecified; I25.10 Atherosclerotic heart disease of native coronary artery without angina pectoris; R19.09 Other intra-abdominal and pelvic swelling, mass and lump; I25.2 Old myocardial infarction; Z95.0 Presence of cardiac pacemaker; Z99.2 Dependence on renal dialysis; Z79.82 Long term (current) use of aspirin; Z79.4 Long term (current) use of insulin
CPT/HCPCS: 71045; 74176; 76775; 77012; 80048; 80053; 80061; 80202; 82105; 82378; 82945; 82962; 83036; 83605; 84157; 84484; 85025; 85049; 85610; 85670; 85730; 86301; 86706; 87040; 87070; 87102; 87116; 87340; 88104; 88305; 88307; 88312; 88313; 89051; 90935; 93005; 93306; 96374; 99285-25

== ENCOUNTER 2018-10-31 08:32 | Emergency (ER) | payer MEDICARE, OTHER ==
[2018-10-31 09:44] LABS: ADD MAN DIFF? NO
[2018-10-31 09:47] LABS: BASOPHILS % 0.4 % (0.0-2.0); EOSINOPHILS # 0.1 10^3/ul (0.0-0.5); EOSINOPHILS % 2.5 % (0.0-7.0); HEMATOCRIT 31.6 % (42.0-52.0); HEMOGLOBIN 9.6 g/dl (14.0-18.0); LYMPHOCYTES # 0.6 10^3/ul (0.8-2.9); LYMPHOCYTES % 13.3 % (15.0-51.0); MEAN CORPUSCULAR HEMOGLOBIN 26.4 pg (29.0-33.0); MEAN CORPUSCULAR HGB CONC 30.4 g/dl (32.0-37.0); MEAN CORPUSCULAR VOLUME 86.8 fl (82.0-101.0); MEAN PLATELET VOLUME 9.8 fl (7.4-10.4); MONOCYTE # 0.5 10^3/ul (0.3-0.9); NEUTROPHIL # 3.5 10^3/ul (1.6-7.5); PLATELET COUNT 195 10^3/UL (140-415); RED BLOOD COUNT 3.64 10^6/ul (4.70-6.10); RED CELL DISTRIBUTION WIDTH 14.6 % (11.5-14.5)
[2018-10-31 09:47] LABS: WHITE BLOOD COUNT 4.8 10^3/ul (4.8-10.8)
[2018-10-31 10:10] LABS: ALANINE AMINOTRANSFERASE 16 IU/L (13-69); ALBUMIN 3.6 g/dl (3.3-4.9); ALBUMIN/GLOBULIN RATIO 1.05; ALKALINE PHOSPHATASE 195 IU/L (42-121); ANION GAP 11 (5-13); ASPARTATE AMINO TRANSFERASE 21 IU/L (15-46); BILIRUBIN,INDIRECT 0.3 mg/dl (0-1.1); BILIRUBIN,TOTAL 0.3 mg/dl (0.2-1.3); BLOOD UREA NITROGEN 33 mg/dl (7-20); CALCIUM 9.5 mg/dl (8.4-10.2); CARBON DIOXIDE 28 mmol/L (21-31); CHLORIDE 101 mmol/L (97-110); CREATININE 6.14 mg/dl (0.61-1.24); Estimated GFR 9 mL/min (>60); GLUCOSE 77 mg/dl (70-220); LIPASE 53 U/L (23-300); POTASSIUM 5.2 mmol/L (3.5-5.1); SODIUM 140 mmol/L (135-144)
== END 2018-10-31 11:28 | disposition home or self-care (01) ==
LOC: E/R 08:32
DX: R18.8 Other ascites (principal); I12.0 Hypertensive chronic kidney disease with stage 5 chronic kidney disease or end stage renal disease; N18.6 End stage renal disease; Z79.4 Long term (current) use of insulin; Z99.2 Dependence on renal dialysis
CPT/HCPCS: 36415; 71045; 74176; 80053; 83690; 84484; 85025; 93005; 99285-25

== ENCOUNTER 2018-12-24 19:31 | Inpatient (IN) | payer MEDICARE, OTHER ==
[2018-12-24] MEDS: VANCOMYCIN 1 GM (PMX) 250 ML IVPB (20:52)
[2018-12-24 21:04] LABS: ADD MAN DIFF? NO
[2018-12-24] MEDS: SODIUM CHLORIDE 0.9% 1L BAG IV* (21:07)
[2018-12-24 21:09] LABS: WHITE BLOOD COUNT 10.4 10^3/ul (4.8-10.8)
[2018-12-24 21:09] LABS: ABNORMAL IP MESSAGE 1; BASOPHILS % 0.1 % (0.0-2.0); EOSINOPHILS % 0.1 % (0.0-7.0); HEMOGLOBIN 11.6 g/dl (14.0-18.0); LYMPHOCYTES # 0.4 10^3/ul (0.8-2.9); LYMPHOCYTES % 4.1 % (15.0-51.0); MEAN CORPUSCULAR HEMOGLOBIN 25.4 pg (29.0-33.0); MEAN CORPUSCULAR HGB CONC 30.5 g/dl (32.0-37.0); MEAN CORPUSCULAR VOLUME 83.2 fl (82.0-101.0); MEAN PLATELET VOLUME 9.8 fl (7.4-10.4); MONOCYTE # 0.7 10^3/ul (0.3-0.9); MONOCYTES % 6.8 % (0.0-11.0); NEUTROPHIL # 9.2 10^3/ul (1.6-7.5); NEUTROPHILS % 88.6 % (39.0-77.0); PLATELET COUNT 173 10^3/UL (140-415); POSITIVE DIFF @See below; RED BLOOD COUNT 4.57 10^6/ul (4.70-6.10); RED CELL DISTRIBUTION WIDTH 14.8 % (11.5-14.5)
[2018-12-24] MEDS: PIPER-TAZO 3.375 GM IV (PMX) 100 ML IVPB (21:21)
[2018-12-24] MEDS: morphine 4 MG/ML VIAL IV (21:21)
[2018-12-24] MEDS: ACETAMINOPHEN 325 MG TAB PO (21:21)
[2018-12-24] MEDS: ONDANSETRON 4 MG INJ IV (21:21)
[2018-12-24 21:27] LABS: ALANINE AMINOTRANSFERASE 13 IU/L (13-69); ALBUMIN 4.3 g/dl (3.3-4.9); ALBUMIN/GLOBULIN RATIO 1.02; ALKALINE PHOSPHATASE 179 IU/L (42-121); ANION GAP 15 (5-13); ASPARTATE AMINO TRANSFERASE 15 IU/L (15-46); BILIRUBIN,INDIRECT 0.4 mg/dl (0-1.1); BILIRUBIN,TOTAL 0.4 mg/dl (0.2-1.3); BLOOD UREA NITROGEN 61 mg/dl (7-20); CARBON DIOXIDE 25 mmol/L (21-31); CHLORIDE 99 mmol/L (97-110); CREATININE 8.62 mg/dl (0.61-1.24); Estimated GFR 6 mL/min (>60); GLUCOSE 99 mg/dl (70-220); SODIUM 139 mmol/L (135-144); TOTAL PROTEIN 8.5 g/dl (6.1-8.1)
[2018-12-24 21:30] LABS: INR 1.24; PROTIME 15.7 Sec (11.9-14.9); PT RATIO 1.2
[2018-12-24 21:31] LABS: PARTIAL THROMBOPLASTIN TIME 33.7 Sec (23.0-35.0)
[2018-12-24 21:32] LABS: ADD UMIC YES; UR ASCORBIC ACID NEGATIVE (NEGATIVE); UR BILIRUBIN (Dip) NEGATIVE (NEGATIVE); UR BLOOD (Dip) NEGATIVE (NEGATIVE); UR CLARITY SLIGHTLY CLOUDY (CLEAR); UR COLOR YELLOW (YELLOW); UR GLUCOSE (Dip) 1+ mg/dL (NEGATIVE); UR KETONES (Dip) NEGATIVE (NEGATIVE); UR LEUKOCYTE ESTERASE (Dip) NEGATIVE Leu/ul (NEGATIVE); UR NITRITE (Dip) NEGATIVE (NEGATIVE); UR RBC 1 /HPF (0-5); UR SPECIFIC GRAVITY (Dip) 1.012 (1.003-1.030); UR TOTAL PROTEIN (Dip) 2+ mg/dl (NEGATIVE); UR UROBILINOGEN (Dip) NEGATIVE (NEGATIVE); UR WBC 2 /HPF (0-5)
[2018-12-24 21:35] LABS: POTASSIUM 6.2 mmol/L (3.5-5.1)
[2018-12-24 21:39] LABS: TROPONIN-I 0.061 ng/ml (0.000-0.120)
[2018-12-24] MEDS: ALBUTEROL 0.5% (NEB) 2.5 MG/0.5 ML AMP INH (22:02)
[2018-12-24] MEDS: NA BICARBONATE 8.4% 50 ML SYG IV (22:21)
[2018-12-24] MEDS ORDERED: ACETAMINOPHEN 325 MG TAB PO (22:30)
[2018-12-24] MEDS ORDERED: ONDANSETRON 4 MG INJ IV (22:30)
[2018-12-24] MEDS ORDERED: VANCOMYCIN IV PER PHARMACY XX (23:30)
[2018-12-24] MEDS ORDERED: HYDROCODONE/APAP (5/325) TAB PO (23:30)
[2018-12-25 01:25] LABS: LACTIC ACID 1.2 mmol/L (0.5-2.0)
[2018-12-25] MEDS ORDERED: GLUCOSE GEL 15 GRAM TUBE PO (04:00)
[2018-12-25] MEDS ORDERED: GLUCAGON 1 MG INJ IM (04:00)
[2018-12-25] MEDS ORDERED: GLUCOSE GEL 15 GRAM TUBE BUCCAL (04:00)
[2018-12-25] MEDS ORDERED: DEXTROSE 50% 50 ML SYRINGE IV ×2 (04:00)
[2018-12-25 05:20] LABS: ADD MAN DIFF? NO
[2018-12-25 05:22] LABS: WHITE BLOOD COUNT 8.6 10^3/ul (4.8-10.8)
[2018-12-25 05:22] LABS: ABNORMAL IP MESSAGE 1; BASOPHILS % 0.2 % (0.0-2.0); HEMATOCRIT 34.9 % (42.0-52.0); HEMOGLOBIN 10.4 g/dl (14.0-18.0); LYMPHOCYTES # 0.5 10^3/ul (0.8-2.9); LYMPHOCYTES % 5.3 % (15.0-51.0); MEAN CORPUSCULAR HEMOGLOBIN 25.5 pg (29.0-33.0); MEAN CORPUSCULAR HGB CONC 29.8 g/dl (32.0-37.0); MEAN CORPUSCULAR VOLUME 85.5 fl (82.0-101.0); MEAN PLATELET VOLUME 9.9 fl (7.4-10.4); MONOCYTE # 0.8 10^3/ul (0.3-0.9); NEUTROPHIL # 7.3 10^3/ul (1.6-7.5); NEUTROPHILS % 84.9 % (39.0-77.0); PLATELET COUNT 142 10^3/UL (140-415); POSITIVE DIFF @See below; RED BLOOD COUNT 4.08 10^6/ul (4.70-6.10)
[2018-12-25 05:38] LABS: HEMOGLOBIN A1C 4.7 % (0-5.9)
[2018-12-25] MEDS: PANTOPRAZOLE (EC) 40 MG TAB PO (05:41)
[2018-12-25] MEDS: VANCOMYCIN 750 MG (PMX) 250 ML IVPB (05:42)
[2018-12-25] MEDS: CEFEPIME 1GM/50 ML (PMX) 50 ML IVPB (05:42)
[2018-12-25 05:48] LABS: ANION GAP 13 (5-13); BLOOD UREA NITROGEN 65 mg/dl (7-20); CALCIUM 9.8 mg/dl (8.4-10.2); CARBON DIOXIDE 25 mmol/L (21-31); CHLORIDE 101 mmol/L (97-110); CHOLESTEROL 106 mg/dl (100-200); CREATININE 8.67 mg/dl (0.61-1.24); Estimated GFR 6 mL/min (>60); GLUCOSE 102 mg/dl (70-220); HDL CHOLESTEROL 35 mg/dl (30-78); LDL CHOLESTEROL,CALCULATED 53 mg/dl; SODIUM 139 mmol/L (135-144); TRIGLYCERIDES 89 mg/dl (0-149)
[2018-12-25 06:35] LABS: POTASSIUM 6.4 mmol/L (3.5-5.1)
[2018-12-25] MEDS: INSULIN ASPART [NOVOLOG] 3 ML PEN SC ×4 (07:43→20:18)
[2018-12-25] MEDS: AMLODIPINE 10 MG TAB PO ×2 (08:12→15:49)
[2018-12-25] MEDS: FERROUS SULFATE (EC) 325 MG TAB PO (08:19)
[2018-12-25] MEDS: CALCIUM ACETATE 667 MG CAP PO ×4 (08:19→17:07)
[2018-12-25 09:32] LABS: HEPATITIS B SURFACE ANTIGEN NEGATIVE (NEGATIVE)
[2018-12-25] MEDS: ATORVASTATIN 10 MG TAB PO (20:18)
[2018-12-25] MEDS: INSULIN GLARGINE [LANTus] (100 UNITS/ML) SYG SC (20:24)
[2018-12-26] MEDS: CEFEPIME 1GM/50 ML (PMX) 50 ML IVPB (05:51)
[2018-12-26] MEDS: PANTOPRAZOLE (EC) 40 MG TAB PO (05:51)
[2018-12-26 06:08] LABS: ADD MAN DIFF? NO
[2018-12-26 06:12] LABS: ABNORMAL IP MESSAGE 1; BASOPHILS % 0.4 % (0.0-2.0); EOSINOPHILS # 0.1 10^3/ul (0.0-0.5); EOSINOPHILS % 0.6 % (0.0-7.0); HEMATOCRIT 33.2 % (42.0-52.0); HEMOGLOBIN 10.1 g/dl (14.0-18.0); LYMPHOCYTES # 0.5 10^3/ul (0.8-2.9); LYMPHOCYTES % 6.5 % (15.0-51.0); MEAN CORPUSCULAR HEMOGLOBIN 25.6 pg (29.0-33.0); MEAN CORPUSCULAR HGB CONC 30.4 g/dl (32.0-37.0); MEAN CORPUSCULAR VOLUME 84.1 fl (82.0-101.0); MEAN PLATELET VOLUME 9.9 fl (7.4-10.4); MONOCYTE # 0.7 10^3/ul (0.3-0.9); MONOCYTES % 8.4 % (0.0-11.0); NEUTROPHILS % 83.7 % (39.0-77.0); PLATELET COUNT 164 10^3/UL (140-415); POSITIVE DIFF @See below; RED BLOOD COUNT 3.95 10^6/ul (4.70-6.10); RED CELL DISTRIBUTION WIDTH 14.9 % (11.5-14.5)
[2018-12-26 06:12] LABS: WHITE BLOOD COUNT 8.4 10^3/ul (4.8-10.8)
[2018-12-26 06:56] LABS: ANION GAP 10 (5-13); BLOOD UREA NITROGEN 41 mg/dl (7-20); CALCIUM 9.4 mg/dl (8.4-10.2); CARBON DIOXIDE 27 mmol/L (21-31); CHLORIDE 101 mmol/L (97-110); CREATININE 6.61 mg/dl (0.61-1.24); Estimated GFR 8 mL/min (>60); GLUCOSE 88 mg/dl (70-220); POTASSIUM 5.4 mmol/L (3.5-5.1); SODIUM 138 mmol/L (135-144)
[2018-12-26] MEDS: INSULIN ASPART [NOVOLOG] 3 ML PEN SC ×4 (08:00→21:00)
[2018-12-26] MEDS: AMLODIPINE 10 MG TAB PO (08:38)
[2018-12-26] MEDS: CALCIUM ACETATE 667 MG CAP PO ×3 (08:38→17:24)
[2018-12-26] MEDS: FERROUS SULFATE (EC) 325 MG TAB PO (08:38)
[2018-12-26] MEDS: ACETAMINOPHEN 500 MG TAB PO (14:44)
[2018-12-26] MEDS: ATORVASTATIN 10 MG TAB PO (21:04)
[2018-12-26] MEDS: INSULIN GLARGINE [LANTus] (100 UNITS/ML) SYG SC (21:15)
[2018-12-27] MEDS: CEFEPIME 1GM/50 ML (PMX) 50 ML IVPB (04:41)
[2018-12-27 06:14] LABS: VANCOMYCIN,RANDOM 11.2 ug/ml
[2018-12-27] MEDS: PANTOPRAZOLE (EC) 40 MG TAB PO (06:32)
[2018-12-27] MEDS: INSULIN ASPART [NOVOLOG] 3 ML PEN SC ×4 (07:56→21:00)
[2018-12-27] MEDS: AMLODIPINE 10 MG TAB PO (09:00)
[2018-12-27] MEDS: FERROUS SULFATE (EC) 325 MG TAB PO (09:27)
[2018-12-27] MEDS: CALCIUM ACETATE 667 MG CAP PO ×3 (09:27→18:02)
[2018-12-27] MEDS: VANCOMYCIN 1 GM 250 ML IVPB (15:48)
[2018-12-27] MEDS: ATORVASTATIN 10 MG TAB PO (21:00)
[2018-12-27] MEDS: INSULIN GLARGINE [LANTus] (100 UNITS/ML) SYG SC (21:03)
[2018-12-28] MEDS: CEFEPIME 1GM/50 ML (PMX) 50 ML IVPB (05:02)
[2018-12-28] MEDS: PANTOPRAZOLE (EC) 40 MG TAB PO (05:02)
[2018-12-28] MEDS: CALCIUM ACETATE 667 MG CAP PO ×3 (07:27→17:16)
[2018-12-28] MEDS: INSULIN ASPART [NOVOLOG] 3 ML PEN SC ×4 (07:27→22:00)
[2018-12-28] MEDS: FERROUS SULFATE (EC) 325 MG TAB PO (08:22)
[2018-12-28] MEDS: AMLODIPINE 10 MG TAB PO (08:22)
[2018-12-28] MEDS: ATORVASTATIN 10 MG TAB PO (21:59)
[2018-12-28] MEDS: INSULIN GLARGINE [LANTus] (100 UNITS/ML) SYG SC (22:01)
[2018-12-29] MEDS: PANTOPRAZOLE (EC) 40 MG TAB PO (05:48)
[2018-12-29] MEDS: CEFEPIME 1GM/50 ML (PMX) 50 ML IVPB (05:48)
[2018-12-29 07:45] LABS: ADD MAN DIFF? NO
[2018-12-29 07:58] LABS: BASOPHILS % 0.4 % (0.0-2.0); EOSINOPHILS # 0.1 10^3/ul (0.0-0.5); EOSINOPHILS % 1.2 % (0.0-7.0); HEMATOCRIT 33.6 % (42.0-52.0); HEMOGLOBIN 9.9 g/dl (14.0-18.0); LYMPHOCYTES # 0.7 10^3/ul (0.8-2.9); LYMPHOCYTES % 9.1 % (15.0-51.0); MEAN CORPUSCULAR HEMOGLOBIN 25.1 pg (29.0-33.0); MEAN CORPUSCULAR HGB CONC 29.5 g/dl (32.0-37.0); MEAN CORPUSCULAR VOLUME 85.1 fl (82.0-101.0); MEAN PLATELET VOLUME 9.7 fl (7.4-10.4); MONOCYTE # 0.7 10^3/ul (0.3-0.9); MONOCYTES % 8.5 % (0.0-11.0); NEUTROPHIL # 6.2 10^3/ul (1.6-7.5); NEUTROPHILS % 80.4 % (39.0-77.0); PLATELET COUNT 176 10^3/UL (140-415); RED BLOOD COUNT 3.95 10^6/ul (4.70-6.10); RED CELL DISTRIBUTION WIDTH 14.6 % (11.5-14.5)
[2018-12-29 07:58] LABS: WHITE BLOOD COUNT 7.7 10^3/ul (4.8-10.8)
[2018-12-29] MEDS: INSULIN ASPART [NOVOLOG] 3 ML PEN SC ×4 (08:00→20:45)
[2018-12-29] MEDS: FERROUS SULFATE (EC) 325 MG TAB PO (08:07)
[2018-12-29] MEDS: AMLODIPINE 10 MG TAB PO (08:07)
[2018-12-29] MEDS: ASPIRIN (EC) 81 MG TAB PO (08:08)
[2018-12-29] MEDS: CALCIUM ACETATE 667 MG CAP PO ×3 (08:08→18:22)
[2018-12-29] MEDS: GLUCOSE GEL 15 GRAM TUBE PO (08:16)
[2018-12-29 08:17] LABS: VANCOMYCIN,RANDOM 15.9 ug/ml
[2018-12-29] MEDS: VANCOMYCIN 1 GM 250 ML IVPB (20:44)
[2018-12-29] MEDS: ATORVASTATIN 10 MG TAB PO (20:44)
[2018-12-29] MEDS: INSULIN GLARGINE [LANTus] (100 UNITS/ML) SYG SC (20:49)
[2018-12-30 05:20] LABS: ADD MAN DIFF? NO
[2018-12-30 05:39] LABS: WHITE BLOOD COUNT 5.1 10^3/ul (4.8-10.8)
[2018-12-30 05:39] LABS: ABNORMAL IP MESSAGE 1; BASOPHILS % 0.4 % (0.0-2.0); EOSINOPHILS # 0.2 10^3/ul (0.0-0.5); EOSINOPHILS % 2.9 % (0.0-7.0); HEMATOCRIT 32.9 % (42.0-52.0); HEMOGLOBIN 10.1 g/dl (14.0-18.0); LYMPHOCYTES # 0.4 10^3/ul (0.8-2.9); MEAN CORPUSCULAR HEMOGLOBIN 25.7 pg (29.0-33.0); MEAN CORPUSCULAR HGB CONC 30.7 g/dl (32.0-37.0); MEAN CORPUSCULAR VOLUME 83.7 fl (82.0-101.0); MEAN PLATELET VOLUME 9.4 fl (7.4-10.4); MONOCYTE # 0.5 10^3/ul (0.3-0.9); NEUTROPHIL # 4.1 10^3/ul (1.6-7.5); NEUTROPHILS % 79.1 % (39.0-77.0); PLATELET COUNT 166 10^3/UL (140-415); POSITIVE DIFF @See below; RED BLOOD COUNT 3.93 10^6/ul (4.70-6.10); RED CELL DISTRIBUTION WIDTH 14.6 % (11.5-14.5)
[2018-12-30] MEDS: CEFEPIME 1GM/50 ML (PMX) 50 ML IVPB (05:57)
[2018-12-30] MEDS: PANTOPRAZOLE (EC) 40 MG TAB PO (05:57)
[2018-12-30 06:02] LABS: ANION GAP 10 (5-13); BLOOD UREA NITROGEN 31 mg/dl (7-20); CALCIUM 9.5 mg/dl (8.4-10.2); CARBON DIOXIDE 29 mmol/L (21-31); CHLORIDE 102 mmol/L (97-110); CREATININE 4.05 mg/dl (0.61-1.24); Estimated GFR 15 mL/min (>60); GLUCOSE 90 mg/dl (70-220); POTASSIUM 4.2 mmol/L (3.5-5.1); SODIUM 141 mmol/L (135-144)
[2018-12-30] MEDS: INSULIN ASPART [NOVOLOG] 3 ML PEN SC ×4 (08:00→20:19)
[2018-12-30] MEDS: CALCIUM ACETATE 667 MG CAP PO ×3 (08:11→17:43)
[2018-12-30] MEDS: ASPIRIN (EC) 81 MG TAB PO (08:12)
[2018-12-30] MEDS: FERROUS SULFATE (EC) 325 MG TAB PO (08:12)
[2018-12-30] MEDS: AMLODIPINE 10 MG TAB PO (08:13)
[2018-12-30] MEDS: ATORVASTATIN 10 MG TAB PO (20:12)
[2018-12-30] MEDS: INSULIN GLARGINE [LANTus] (100 UNITS/ML) SYG SC (20:18)
[2018-12-31] MEDS: CEFEPIME 1GM/50 ML (PMX) 50 ML IVPB (04:36)
[2018-12-31 05:12] LABS: ADD MAN DIFF? NO
[2018-12-31] MEDS: PANTOPRAZOLE (EC) 40 MG TAB PO (05:14)
[2018-12-31 05:20] LABS: WHITE BLOOD COUNT 6.5 10^3/ul (4.8-10.8)
[2018-12-31 05:20] LABS: BASOPHILS % 0.3 % (0.0-2.0); EOSINOPHILS # 0.2 10^3/ul (0.0-0.5); EOSINOPHILS % 2.5 % (0.0-7.0); HEMATOCRIT 32.7 % (42.0-52.0); HEMOGLOBIN 9.6 g/dl (14.0-18.0); LYMPHOCYTES # 0.6 10^3/ul (0.8-2.9); LYMPHOCYTES % 9.4 % (15.0-51.0); MEAN CORPUSCULAR HEMOGLOBIN 25.1 pg (29.0-33.0); MEAN CORPUSCULAR HGB CONC 29.4 g/dl (32.0-37.0); MEAN CORPUSCULAR VOLUME 85.4 fl (82.0-101.0); MEAN PLATELET VOLUME 9.3 fl (7.4-10.4); MONOCYTE # 0.5 10^3/ul (0.3-0.9); MONOCYTES % 7.9 % (0.0-11.0); NEUTROPHIL # 5.2 10^3/ul (1.6-7.5); NEUTROPHILS % 79.4 % (39.0-77.0); PLATELET COUNT 159 10^3/UL (140-415); RED BLOOD COUNT 3.83 10^6/ul (4.70-6.10); RED CELL DISTRIBUTION WIDTH 14.8 % (11.5-14.5)
[2018-12-31 05:49] LABS: ANION GAP 10 (5-13); BLOOD UREA NITROGEN 44 mg/dl (7-20); CALCIUM 9.5 mg/dl (8.4-10.2); CARBON DIOXIDE 28 mmol/L (21-31); CHLORIDE 102 mmol/L (97-110); CREATININE 5.67 mg/dl (0.61-1.24); Estimated GFR 10 mL/min (>60); GLUCOSE 91 mg/dl (70-220); POTASSIUM 4.8 mmol/L (3.5-5.1); SODIUM 140 mmol/L (135-144)
[2018-12-31] MEDS: INSULIN ASPART [NOVOLOG] 3 ML PEN SC ×4 (08:00→20:22)
[2018-12-31] MEDS: CALCIUM ACETATE 667 MG CAP PO ×3 (08:21→17:52)
[2018-12-31] MEDS: ASPIRIN (EC) 81 MG TAB PO (09:52)
[2018-12-31] MEDS: FERROUS SULFATE (EC) 325 MG TAB PO (09:52)
[2018-12-31] MEDS: AMLODIPINE 10 MG TAB PO (09:57)
[2018-12-31 19:28] LABS: C-REACTIVE PROTEIN 5.1 mg/dl (0.0-0.9)
[2018-12-31 19:51] LABS: PROCALCITONIN 1.75 ng/mL (0.00-0.10)
[2018-12-31] MEDS: ATORVASTATIN 10 MG TAB PO (20:04)
[2018-12-31 20:15] LABS: ERYTHROCYTE SEDIMENTATION RATE 35 mm/Hr (0-20)
[2018-12-31] MEDS: INSULIN GLARGINE [LANTus] (100 UNITS/ML) SYG SC (20:23)
[2019-01-01] MEDS: CEFEPIME 1GM/50 ML (PMX) 50 ML IVPB (05:07)
[2019-01-01] MEDS: PANTOPRAZOLE (EC) 40 MG TAB PO (05:10)
[2019-01-01] MEDS: INSULIN ASPART [NOVOLOG] 3 ML PEN SC ×4 (08:00→20:27)
[2019-01-01] MEDS: FERROUS SULFATE (EC) 325 MG TAB PO (08:47)
[2019-01-01] MEDS: ASPIRIN (EC) 81 MG TAB PO (08:47)
[2019-01-01] MEDS: CALCIUM ACETATE 667 MG CAP PO ×3 (08:47→17:38)
[2019-01-01] MEDS: AMLODIPINE 10 MG TAB PO (08:48)
[2019-01-01] MEDS: DAKINS 0.0125%(1/40) 473 ML SOLUTION TP (12:55)
[2019-01-01 13:47] LABS: C-REACTIVE PROTEIN 4.3 mg/dl (0.0-0.9)
[2019-01-01 14:17] LABS: ERYTHROCYTE SEDIMENTATION RATE 33 mm/Hr (0-20)
[2019-01-01] MEDS: INSULIN GLARGINE [LANTus] (100 UNITS/ML) SYG SC (20:26)
[2019-01-01] MEDS: ATORVASTATIN 10 MG TAB PO (21:00)
[2019-01-02] MEDS: PANTOPRAZOLE (EC) 40 MG TAB PO (05:46)
[2019-01-02] MEDS: INSULIN ASPART [NOVOLOG] 3 ML PEN SC ×4 (08:00→21:00)
[2019-01-02] MEDS: FERROUS SULFATE (EC) 325 MG TAB PO (08:41)
[2019-01-02] MEDS: AMLODIPINE 10 MG TAB PO (08:41)
[2019-01-02] MEDS: CALCIUM ACETATE 667 MG CAP PO ×3 (08:41→17:19)
[2019-01-02] MEDS: ASPIRIN (EC) 81 MG TAB PO (08:42)
[2019-01-02] MEDS: DAKINS 0.0125%(1/40) 473 ML SOLUTION TP (08:42)
[2019-01-02] MEDS: VANCOMYCIN 1 GM 250 ML IVPB (20:18)
[2019-01-02] MEDS: ATORVASTATIN 10 MG TAB PO (20:29)
[2019-01-02] MEDS: INSULIN GLARGINE [LANTus] (100 UNITS/ML) SYG SC (21:00)
[2019-01-03] MEDS: PANTOPRAZOLE (EC) 40 MG TAB PO (05:41)
[2019-01-03] MEDS: INSULIN ASPART [NOVOLOG] 3 ML PEN SC ×4 (08:00→20:54)
[2019-01-03] MEDS: FERROUS SULFATE (EC) 325 MG TAB PO (08:27)
[2019-01-03] MEDS: ASPIRIN (EC) 81 MG TAB PO (08:27)
[2019-01-03] MEDS: CALCIUM ACETATE 667 MG CAP PO ×3 (08:27→18:02)
[2019-01-03] MEDS: AMLODIPINE 10 MG TAB PO (09:00)
[2019-01-03] MEDS: DAKINS 0.0125%(1/40) 473 ML SOLUTION TP ×2 (09:00→14:42)
[2019-01-03] MEDS: ATORVASTATIN 10 MG TAB PO (20:48)
[2019-01-03] MEDS: INSULIN GLARGINE [LANTus] (100 UNITS/ML) SYG SC (20:54)
[2019-01-04] MEDS: PANTOPRAZOLE (EC) 40 MG TAB PO (05:40)
[2019-01-04] MEDS: CALCIUM ACETATE 667 MG CAP PO ×2 (08:05→12:41)
[2019-01-04] MEDS: FERROUS SULFATE (EC) 325 MG TAB PO (08:05)
[2019-01-04] MEDS: ASPIRIN (EC) 81 MG TAB PO (08:05)
[2019-01-04] MEDS: AMLODIPINE 10 MG TAB PO (08:06)
[2019-01-04] MEDS: INSULIN ASPART [NOVOLOG] 3 ML PEN SC ×2 (08:09→12:00)
[2019-01-04] MEDS: DAKINS 0.0125%(1/40) 473 ML SOLUTION TP ×2 (09:00→14:36)
== END 2019-01-04 16:56 | disposition home health service (06) | DRG 623 ==
LOC: 2NE 12-28 17:23 → E/R 19:31 → 6WM 22:07
PROC: 5A1D70Z Performance of Urinary Filtration, Intermittent, Less than 6 Hours Per Day (ICD-10-PCS; 2018-12-25)
PROC: 0JBR0ZZ Excision of Left Foot Subcutaneous Tissue and Fascia, Open Approach (ICD-10-PCS; principal; 2018-12-31)
DX: E11.628 Type 2 diabetes mellitus with other skin complications (principal); L03.116 Cellulitis of left lower limb; I12.0 Hypertensive chronic kidney disease with stage 5 chronic kidney disease or end stage renal disease; E11.621 Type 2 diabetes mellitus with foot ulcer; L97.529 Non-pressure chronic ulcer of other part of left foot with unspecified severity; N18.6 End stage renal disease; E11.22 Type 2 diabetes mellitus with diabetic chronic kidney disease; Z99.2 Dependence on renal dialysis; E83.39 Other disorders of phosphorus metabolism; E87.5 Hyperkalemia; I25.2 Old myocardial infarction; E11.42 Type 2 diabetes mellitus with diabetic polyneuropathy; Z87.891 Personal history of nicotine dependence; Z95.0 Presence of cardiac pacemaker
CPT/HCPCS: 36415; 71045; 73630-LT; 73700; 80048; 80053; 80061; 80202; 81001; 82962; 83036; 83605; 84145; 84484; 85025; 85610; 85651; 85730; 86140; 87040-91; 87070; 87081; 87086; 87340; 90935; 93005; 93971; 94664; 96374; 96375; 99285-25